=== PATIENT | male | born 1960 | race Caucasian/White ===

== ENCOUNTER → 2017-06-06 | Outpatient (CLI) | payer BC ==
[2017-06-06 10:40] VITALS: BP 126/72
[2017-06-06 11:30] VITALS: BP 139/75
[2017-06-06 16:00] LABS: BUN/Creatinine Ratio 26.2; Potassium 4.6 mmol/L (3.5-5.1)
[2017-06-06 16:11] LABS: Basophils # (auto) 0 uL; Basophils % (auto) 0.5 % (0.0-2.0); Eosinophils # (auto) 0.3 uL; Eosinophils % (auto) 3.2 % (0.0-7.0); Hematocrit 40.1 % (41.0-53.0); Hemoglobin 13.5 g/dL (13.5-17.5); Lymphocytes # (auto) 1.7 uL; Lymphocytes % (auto) 17.7 % (10.0-50.0); Mean Corpuscular Hgb Conc. 33.5 g/dL (32.0-36.0); Mean Corpuscular Volume 92.5 fL (80.0-100.0); Monocytes # (auto) 0.7 uL; Monocytes % (auto) 7.8 % (0.0-12.0); Neutrophils # (auto) 6.8 uL; Neutrophils % (auto) 70.8 % (37.0-80.0); Nucleated Red Blood Cells % 0.2 %; Platelet Count (auto) 271 10^3/uL (140-450); Red Cell Distribution Width 13.4 % (11.8-14.3); White Blood Cell 9.6 10^3/uL (4.4-10.8)
[2017-06-06 16:27] LABS: INR 0.98 (0.9-1.15); Partial Thromboplastin Time 28.6 sec (22.64-33.71); Prothrombin Time 10.7 sec (9.37-12.3)
== END | disposition home or self-care (01) ==
LOC: Rad HDHVI 09:57
PROVIDERS: ATTEND Internal Medicine Cardiovascular Disease
DX: Z01.818 Encounter for other preprocedural examination (principal); I25.10 Atherosclerotic heart disease of native coronary artery without angina pectoris; I10 Essential (primary) hypertension; D64.9 Anemia, unspecified; E11.9 Type 2 diabetes mellitus without complications; R79.1 Abnormal coagulation profile
CPT/HCPCS: 36415; 71020; 80048; 85025; 85610; 85730; 93005; G0463

== ENCOUNTER 2017-06-08 09:15 | Day surgery (SDC) | payer BC ==
[~2017-06-08] VITALS: Ht 180.3 cm; Wt 137.0 kg
[2017-06-08] MEDS ORDERED: LIDOCAINE 2%HCL (LOCAL ANESTH.) INJ 20ML MDV ONE (10:14)
[2017-06-08] MEDS ORDERED: IOHEXOL 350 MG/ML 100ML IJ ONE (10:14)
[2017-06-08] MEDS ORDERED: fentaNYL CITRATE 100 MCG/2 ML VL ONE (10:37)
[2017-06-08] MEDS ORDERED: MIDAZOLAM HCL 1MG/1ML-2 ML VIAL ONE (10:37)
[2017-06-08] MEDS ORDERED: ANGIOMAX 250 MG VIAL IV ONE (10:38)
[2017-06-08] MEDS ORDERED: SITA50TA28 PO (12:31)
[2017-06-08] MEDS ORDERED: INSLANTI SC (12:31)
[2017-06-08] MEDS ORDERED: LEVO25TA49 PO (12:31)
[2017-06-08] MEDS ORDERED: CARV6.2551 PO (12:31)
[2017-06-08] MEDS ORDERED: ATOR20TA PO (12:31)
[2017-06-08] MEDS ORDERED: BENA10TA9 PO (12:31)
[2017-06-08] MEDS ORDERED: INSREG3 IV (12:31)
== END 2017-06-08 13:25 | disposition home or self-care (01) ==
LOC: CATH 09:15
PROVIDERS: ATTEND Internal Medicine Cardiovascular Disease
DX: R94.39 Abnormal result of other cardiovascular function study (principal); R07.9 Chest pain, unspecified; G47.30 Sleep apnea, unspecified; E78.5 Hyperlipidemia, unspecified; E03.9 Hypothyroidism, unspecified; Z87.891 Personal history of nicotine dependence; E66.9 Obesity, unspecified; I10 Essential (primary) hypertension; Z68.41 Body mass index [BMI] 40.0-44.9, adult
CPT/HCPCS: 82962; 93458; C1760; C1894; J1644; J2250; J3010; J7030; Q9967; 99152